=== PATIENT | female | born 1985 | race Caucasian/White ===

== ENCOUNTER 2019-04-28 13:06 | Emergency (ER) | payer OTHER ==
[2019-04-28 13:18] VITALS: TEMP 98.2
[2019-04-28] MEDS ORDERED: methylPREDNISolone SOD SUCCI 125 MG/2 ML VIAL IV STA (14:14)
[2019-04-28] MEDS ORDERED: KETOROLAC 30 MG/ML 1 ML VIAL IVP STA (14:14)
--- NOTE | 2019-04-28 14:15 | ED ---
General Adult HPI - General Chief complaint: Extremity Problem,Nontraumatic Stated complaint: Whole body pain Time Seen by Provider: 04/28/19 13:25 Source: patient Mode of arrival: ambulatory Limitations: no limitations - History of Present Illness Initial comments: 33-year-old female presenting for all of her joint pain. Patient states that for the past 2-3 weeks she has had joint pain. She states that 2 weeks ago she began experiencing hip pain due to began after working outside she starts she had strained something. Patient states that she also noticed at the same time some bleeding from the left ear. She was concerned that he be a tick had gotten inside of her ear and then had gone out. She went to an urgent care where they examined the ear. They did not see any evidence of a tick or tick bite there is no rash, but with patient history of joint pain with history of left ear bleeding from the inside they gave patient doxycycline and tested her for Lyme disease. Patient states initially she only had joint pain of the knees. The hi ps she states is now progressed to her shoulders elbows and wrists. Patient states she does have a history of ulcerative colitis. Patient denies taking any chronic steroids or medications for this and states she has not had any symptoms recently. Patient denies any rashes she denies any headache neck stiffness dizziness fevers. Patient denies any dysuria urgency frequency or hematuria. Patient denies any vaginal discharge. Patient states she has and does have any concern for STI. Remaining review of system negative. Upon arrival patient appears well no sign of acute distress. - Related Data Home Medications Medication Instructions Recorded Confirmed Ascorbic Acid [Vitamin C] 1,000 mg PO DAILY 04/28/19 04/28/19 Doxycycline Hyclate [Vibramycin] 100 mg PO BID 04/28/19 04/28/19 Ofloxacin 0.3% Otic Soln [Floxin 5 drops BOTH EARS BID 04/28/19 04/28/19 0.3% Otic Soln] Previous Rx's Medication Instructions Recorded predniSONE 20 mg PO BID 5 Days #10 tab 04/28/19 Allergies Allergy/AdvReac Type Severity Reaction Status Date / Time codeine Allergy Unknown Verified 04/28/19 13:54 Review of Systems ROS Statement: Those systems with pertinent positive or pertinent negative responses have been documented in the HPI. ROS Other: All systems not noted in ROS Statement are negative. Past Medical History Past Medical History: No Reported History History of Any Multi-Drug Resistant Organisms: None Reported Past Surgical History: No Surgical Hx Reported Past Psychological History: No Psychological Hx Reported Smoking Status: Current every day smoker Past Alcohol Use History: Daily Past Drug Use History: None Reported General Exam - General Exam Comments Initial Comments: General: The patient is awake and alert, in no distress, and does not appear acutely ill. Eye: +3 mm pupils are equal, round and reactive to light, extra-ocular movements are intact. No nystagmus. There is normal conjunctiva bilaterally. No signs of icterus. Ears, nose, mouth and throat: There are moist mucous membranes and no oral lesions. Neck: The neck is supple, there is no tenderness or JVD. Cardiovascular: There is a regular rate and rhythm. No murmur, rub or gallop is appreciated. Respiratory: Lungs are clear to auscultation, respirations are non-labored, breath sounds are equal. No wheezes, stridor, rales, or rhonchi. Gastrointestinal: Soft, non-distended, non-tender abdomen without masses or organomegaly noted. There is no rebound or guarding present. Musculoskeletal: Normal inspection of the shoulders elbows wrists hips knees ankles bilaterally. No soft tissue swelling noted Normal ROM, at all major joints however patient complains of discomfort with range of motion at the elbows wrists knees hips bilaterally.. Strength 5/5. Sensation intact. Radial and DP pulses equal bilaterally 2+. Neurological: A&O x 3. CN II-XII intact, There are no obvious motor or sensory deficits. Coordination appears grossly intact. Speech is normal. Skin: Skin is warm and dry and no rashes or lesions are noted. Psychiatric: Cooperative, appropriate mood & affect, normal judgment. Limitations: no limitations Course Vital Signs 04/28/19 04/28/19 04/28/19 13:14 16:22 16:27 Temperature 98.2 F 98.2 F 98.2 F Pulse Rate 94 60 60 Respiratory 16 18 18 Rate Blood Pressure 142/74 117/79 117/79 O2 Sat by Pulse 100 95 95 Oximetry Medical Decision Making - Medical Decision Making Well-appearing 33-year-old female presenting for pain of her joints. Patient has current Lyme disease testing pending. She is on doxycycline. She states she was followed up by ENT for bleeding of the left ear who noted that this did not look like a bug bite. Patient has no history of rash. There is no joint swelling. No history of low-grade fever. ESR within normal limits, CRP is elevated. Patient JOSSE (-). RF WNL. Patient was started on steriods and given toradol in the ER. Patient was instructed to continue doxycycline and f/u with both PCP and rheumatology. At this time is unclear the specific etiology of patient's joint pain however there is no significant physical examination findings. Patient is able to fully range and there is no signs of soft tissue swelling. Patient is afebrile. Return parameters were discussed at length the patient as well as the importance of follow-up. Patient is agreeable care plan as well as discharge today. I did discuss the case attending provider Dr. Swan who is agreeable care plan. I did attempt to call Jackelyn Smith on her cellphone to discuss results of JOSSE and RF but patient was not available. Results (-). Attempt #1 19:51. - Lab Data Result diagrams: 04/28/19 14:24 04/28/19 14:24 Lab Results 04/28/19 04/28/19 04/28/19 Range/Units 14:24 14:24 14:24 WBC 9.6 (3.8-10.6) k/uL RBC 4.19 (3.80-5.40) m/uL Hgb 13.4 (11.4-16.0) gm/dL Hct 39.0 (34.0-46.0) % MCV 93.0 (80.0-100.0) fL MCH 31.9 (25.0-35.0) pg MCHC 34.3 (31.0-37.0) g/dL RDW 13.1 (11.5-15.5) % Plt Count 296 (150-450) k/uL Neutrophils % 70 % Lymphocytes % 21 % Monocytes % 6 % Eosinophils % 1 % Basophils % 0 % Neutrophils # 6.7 (1.3-7.7) k/uL Lymphocytes # 2.0 (1.0-4.8) k/uL Monocytes # 0.6 (0-1.0) k/uL Eosinophils # 0.1 (0-0.7) k/uL Basophils # 0.0 (0-0.2) k/uL ESR 20 (0-20) mm/hr Sodium 141 (137-145) mmol/L Potassium 4.1 (3.5-5.1) mmol/L Chloride 110 H (98-107) mmol/L Carbon Dioxide 22 (22-30) mmol/L Anion Gap 9 mmol/L BUN 11 (7-17) mg/dL Creatinine 0.54 (0.52-1.04) mg/dL Est GFR (CKD-EPI)AfAm >90 (>60 ml/min/1.73 sqM) Est GFR (CKD-EPI)NonAf >90 (>60 ml/min/1.73 sqM) Glucose 93 (74-99) mg/dL Calcium 9.8 (8.4-10.2) mg/dL Total Bilirubin 0.4 (0.2-1.3) mg/dL AST 20 (14-36) U/L ALT 25 (9-52) U/L Alkaline Phosphatase 59 (38-126) U/L C-Reactive Protein 29.4 H (<10.0) mg/L Total Protein 6.8 (6.3-8.2) g/dL Albumin 4.1 (3.5-5.0) g/dL Rheumatoid Factor 11 (0-15) IU/mL JOSSE Screen NEGATIVE (NEGATIVE) Disposition Clinical Impression: Joint pain Disposition: HOME SELF-CARE Condition: Good Instructions (If sedation given, give patient instructions): Autoimmune Disease (ED) Additional Instructions: Please use medication as discussed. Please follow-up with family doctor as scheduled. Please return to emergency room if the symptoms increase or worsen or for any other concerns. Prescriptions: predniSONE 20 mg PO BID 5 Days #10 tab Is patient prescribed a controlled substance at d/c from ED?: No Referrals: Placido Centeno MD [Primary Care Provider] - 1-2 days Randa Gamboa MD [STAFF PHYSICIAN] - 1-2 days Time of Disposition: 15:24
[2019-04-28 14:49] LABS: ALT 25 U/L (9-52); AST 20 U/L (14-36); African American GFR (CKD) >90 (>60 ml/min/1.73 sqM); Albumin 4.1 g/dL (3.5-5.0); Alkaline Phosphatase 59 U/L (38-126); Anion Gap 9 mmol/L; Blood Urea Nitrogen 11 mg/dL (7-17); C Reactive Protein 29.4 mg/L (<10.0); Calcium 9.8 mg/dL (8.4-10.2); Carbon Dioxide 22 mmol/L (22-30); Chloride 110 mmol/L (98-107); Glucose 93 mg/dL (74-99); Potassium 4.1 mmol/L (3.5-5.1); Sodium 141 mmol/L (137-145); Total Bilirubin 0.4 mg/dL (0.2-1.3); Total Protein 6.8 g/dL (6.3-8.2)
[2019-04-28 14:53] LABS: Basophils % (A) 0 %; Eosinophils # (A) 0.1 k/uL (0-0.7); Eosinophils % (A) 1 %; HGB 13.4 gm/dL (11.4-16.0); Lymphocytes % (A) 21 %; MCH 31.9 pg (25.0-35.0); MCHC 34.3 g/dL (31.0-37.0); Monocytes # (A) 0.6 k/uL (0-1.0); Monocytes % (A) 6 %; Neutrophils # (A) 6.7 k/uL (1.3-7.7); Neutrophils % (A) 70 %; Platelet Count 296 k/uL (150-450); RBC 4.19 m/uL (3.80-5.40); RDW 13.1 % (11.5-15.5); WBC 9.6 k/uL (3.8-10.6)
[2019-04-28] MEDS ORDERED: ACET/COD 300 MG/30 MG STARTER PACK 6 TAB BTL PO STA (15:59)
[2019-04-28 16:07] LABS: Erythrocyte Sedimentation Rate 20 mm/hr (0-20)
[2019-04-28 16:23] VITALS: BP 117/79; PULSE 60; RESP 18
[2019-04-28 18:50] LABS: Rheumatoid Factor 11 IU/mL (0-15)
== END 2019-04-28 16:28 | disposition home or self-care (01) ==
LOC: EC 13:06
DX: M25.50 Pain in unspecified joint (principal); F17.200 Nicotine dependence, unspecified, uncomplicated; Z88.5 Allergy status to narcotic agent
CPT/HCPCS: 36415; 80053; 85652; 85025; 86140; 86431; 86038; 99283; 96374; 96375; J2930; J1885